=== PATIENT | male | born 1960 | race Caucasian/White ===

== ENCOUNTER 2018-12-10 14:31 | Observation (INO) ==
--- NOTE | 2018-12-10 18:36 | Internal Med History&Physical ---
Date of Encounter: 12/10/18 Time of Encounter: 11:00 Internal Medicine - H&P: HPI Chief complaint: Chest pain Plans for Post Hospital Care: Home History of present illness: Patient is a 58-year-old male past medical history significant for diabetes, hy pertension and hyperlipidemia who presented to [facility] [place] due to chest pain. She reported of epigastric, nonradiating, sharp pain which is constant with no provoking or relieving factors. Patient reported associated symptoms of shortness of breath and nausea/vomiting. His concerns of decided to go to the ER for evaluation. At [facility] ER in [place], first set of troponins were negative. CTA of the chest/abdomen negative for dissection. Patient requested transferred to [facility] due to close proximity to family. Past Med Surg Social Fam HX - Past Medical History Medical history: diabetes, other Additional medical history: anxiety,depression,lumbar Psychiatric history: anxiety, depression - Past Surgical History Surgical History: appendectomy, vasectomy, other Additional surgical history: back surgery, pain stimulator - Social History Smoking Status: Former smoker Smokeless Tobacco Status: No Alcohol use: none Drug use: none - Family History Mother Living Status: Hx Family Cancer: Yes Internal Medicine - H&P: Meds Oxycodone HCl/Acetaminophen [Percocet 10-325 mg Tablet] 1 tab PO Q4H PRN #60 tab 11/21/15 [Rx] Allergy/AdvReac Type Severity Reaction Status Date / Time acetaminophen [From Vicodin] AdvReac Nausea Unverified 11/02/15 11:06 hydrocodone [From Vicodin] AdvReac Nausea Unverified 11/02/15 11:06 All Systems PM: A 10-system review of systems was performed and is negative for pertinent findings except as documented above in the HPI. - Constitutional Vitals: Temp Pulse Resp BP Pulse Ox 97.9 F 78 18 144/84 94 12/10/18 16:50 12/10/18 16:50 12/10/18 16:50 12/10/18 16:50 12/10/18 16:50 Exam: General appearance: Present: A&O X 3, no acute distress - Head Head exam: Present: normocephalic - Eye Eye exam: Present: normal appearance - ENT ENT exam: Present: mucous membranes moist - Respiratory Respiratory exam: Present: CTAB. Absent: accessory muscle use, rales, rhonchi, wheezes - Cardiovascular Cardiovascular exam: Present: RRR, +S1, +S2. Absent: diastolic murmur, gallop, rubs, systolic murmur - GI/Abdominal GI/Abdominal exam: Present: Epigastric pain with tenderness to palpation - Extremities Exam Extremities exam: Absent: pedal edema - Neurological Exam Neurological exam: Present: alert, oriented X3, no focal deficits. Absent: altered - Psychiatric Psychiatric exam: -normal mood Skin exam: -normal color - Assessment and plan (1) Epigastric pain Current Visit: Yes Status: Acute Assessment and plan: Patient reports of being awakened this morning with sharp epigastric pain associated symptoms of nausea and vomiting He was sent here from [facility] for ACS rule out First set of troponins negative Will continue serial troponins and monitor on telemetry Will order echocardiogram Also order nuclear medicine stress test for ACS rule out If ACS has been ruled out, recommendations for evaluation of epigastric pain with a GI consult for consideration for EGD (2) HTN (hypertension), benign Current Visit: Yes Status: Acute Assessment and plan: Continue home medications (3) Diabetes Current Visit: Yes Status: Acute Assessment and plan: Hold oral diabetic medications and cover with sliding-scale insulin Qualifiers: Diabetes mellitus type: type 2 Qualified Code(s): E11.9 - Type 2 diabetes mellitus without complications (4) DVT prophylaxis Current Visit: Yes Status: Acute Assessment and plan: Subcutaneous heparin - Time Spent With Patient Total time spent is greater than 50% in coordination of care (as documented) at patient's floor/unit and/or counseling patient:
[2018-12-10] MEDS ORDERED: Naloxone 0.4 MG/ML INJ IVP PRN (18:45)
[2018-12-10] MEDS ORDERED: Ondansetron 4 MG/2 ML VIAL IVP ONE (19:56)
--- NOTE | 2018-12-10 19:58 | Event Note ---
Date of Encounter: 12/10/18 Time of Encounter: 19:29 Notified by nurse of patient continuing to complain of epigastric/chest pain. Assessed patient at bedside. Complains of pain in burning in epigastric area, relieved with vomiting. Second troponin negative, echo and stress test planned to rule out any cardiac etiology. Will order zofran and tums now. Nurse to notify of any new changes.
[2018-12-10] MEDS: *HR* Heparin 5,000 UNIT/ML VIAL SQ SCH (20:18)
[2018-12-11] MEDS ORDERED: Ketorolac 15 MG/ML VIAL IVP ONE (01:14)
[2018-12-11 01:15] LABS: Basophils % 0.4 %; Eosinophils # 0.1 K/mcL (0.0-0.6); Eosinophils % 0.7 %; Hematocrit 45.3 % (37.5-50.1); Hemoglobin 15.5 g/dL (12.9-16.9); Immature Granulocytes % 0.3 % (0-4); Lymphocytes # 2.1 K/mcL (0.6-4.6); Lymphocytes % 19.8 %; Mean Corpuscular HGB Conc 34.2 g/dL (31.6-35.5); Mean Corpuscular Hemoglobin 30.3 pg (28.0-33.3); Mean Corpuscular Volume 88.5 fL (83.0-100.0); Monocytes # 1.1 K/mcL (0.0-1.3); Monocytes % 10.5 %; Neutrophils # 7.4 K/mcL (1.6-8.9); Platelet Count 149 K/mcL (140-400); Red Blood Count 5.12 M/mcL (4.19-5.50); Red Cell Distribution Width 13.3 % (11.5-14.5); Segmented Neutrophils % 68.3 %
[2018-12-11 01:40] LABS: Alanine Aminotransferase 42 Units/L (7-52); Albumin 3.9 g/dL (3.5-5.7); Albumin/Globulin Ratio 1.1 (1.1-2.2); Alkaline Phosphatase 75 Units/L (34-104); Aspartate Amino Transferase 27 Units/L (13-39); BUN/Creatinine Ratio 20 (6-26); Bilirubin,Total 0.8 mg/dL (0.3-1.0); Blood Urea Nitrogen 14 mg/dL (6-20); Calcium 9.5 mg/dL (8.6-10.3); Carbon Dioxide 27 mEq/L (23-29); Chloride 96 mEq/L (98-107); Globulin 3.4 g/dL (2.4-3.5); Glucose 318 mg/dL (70-105); Osmolality,Calculated 291 (280-300); Potassium 4.1 mEq/L (3.5-5.1); Sodium 134 mEq/L (136-145); Total Protein 7.3 g/dL (6.4-8.9); eGFR For Non-African Americans > 60 (> 60)
[2018-12-11] MEDS: *HR* Heparin 5,000 UNIT/ML VIAL SQ SCH ×3 (05:58→22:53)
[2018-12-11] MEDS ORDERED: Regadenoson 0.4 MG/5 ML SYRINGE IVP ONE (06:01)
[2018-12-11] MEDS ORDERED: Ondansetron 4 MG/2 ML VIAL IVP ONE (06:12)
--- NOTE | 2018-12-11 11:52 | Internal Med Progress Note ---
Addendum entered and electronically signed by Whitney Rowell 12/12/18 09:57: Original Note: <Whitney Rowell - Last Filed: 12/11/18 12:03> Hospitalist Progress Note - Encounter Date of Encounter: 12/11/18 Time of Encounter: 07:45 - Subjective Interval History: 58-year-old male past medical history significant for diabetes, hypertension and hyperlipidemia who presented to [facility] [place] due to chest pain.He reported of epigastric & lower retro sternal nonradiating, sharp pain which is constant with no provoking or relieving factors. Patient reported associated symptoms of shortness of breath and nausea/vomiting. At [facility] ER in [place], first set of troponins were negative. CTA of the chest/abdomen negative for dissection. Patient requested transferred to [facility] due to close proximity to family. Today during my visit, the patient was well oriented to time place and person, the chest pain/epigastric pain was very minimal. Vitals are stable. He does not have any new complaints. He he was about to go for stress test while I visited him. - Exam Vitals: Temp Pulse Resp BP Pulse Ox 98.5 F 79 16 142/89 93 12/11/18 07:31 12/11/18 07:31 12/11/18 07:31 12/11/18 07:31 12/11/18 07:31 Exam: General appearance: Present: A&O X 3, no acute distress - Head Head exam: Present: normocephalic - Eye Eye exam: Present: normal appearance - ENT ENT exam: Present: mucous membranes moist - Respiratory Respiratory exam: Present: CTAB. Absent: accessory muscle use, rales, rhonchi, wheezes - Cardiovascular Cardiovascular exam: Present: RRR, +S1, +S2. Absent: diastolic murmur, gallop, rubs, systolic murmur - GI/Abdominal GI/Abdominal exam: Present: Epigastric pain with tenderness to palpation - Extremities Exam Extremities exam: Absent: pedal edema - Neurological Exam Neurological exam: Present: alert, oriented X3, no focal deficits. Absent: altered - Psychiatric Psychiatric exam: -normal mood Skin exam: -normal color - Assessment and Plan (1) Epigastric pain Current Visit: Yes Status: Acute Assessment and Plan: The patient has severe epigastric pain, it might be related to acid reflux, but he does have multiple risk factors for ACS We will ruled out epigastric pain related to acute coronary syndrome Echocardiogram and stress test has been planned report awaited Serial troponin was negative EKG: No ST elevation (2) Chest pain Current Visit: Yes Status: Acute Assessment and Plan: The patient was admitted for severe epigastric and lower mid retrosternal pain with shortness of breath and nausea vomiting He has multiple risk factors: Hypertension, diabetes, hyperlipidemia, former smoker Serial troponin was negative EKG; no ST or T-wave changes Echocardiogram has been done and report awaited 2 days cardiac stress test has been planned He is on Lipitor,We will adjust medication after reports Heart score 4 (3) HTN (hypertension), benign Current Visit: Yes Status: Acute Assessment and Plan: He is a known patient of hypertension under medication He is on hydralazine 10 MG Blood pressure 142/89 (4) Diabetes Current Visit: Yes Status: Acute Assessment and Plan: He has elevated blood sugar A1c 6.0 done long ago His blood sugar 318 Have ordered A1c today We will reassess blood sugar and A1c, to assess antidiabetes medication (5) Morbid obesity Current Visit: Yes Status: Acute Assessment and Plan: The patient has BMI 44.9 We have counseled about low-calorie and exercise (6) DVT prophylaxis Current Visit: Yes Status: Acute Assessment and Plan: He is on heparin SQ - Time Spent with Patient Total time spent is greater than 50% in coordination of care (as documented) at patient's floor/unit and/or counseling patient: Internal Medicine: Result - Labs CBC & Chem 7: 12/11/18 00:53 12/11/18 00:53 Labs: Short CBC 12/11/18 Range/Units 00:53 WBC 10.8 (4.3-11.1) K/mcL Hgb 15.5 (12.9-16.9) g/dL Hct 45.3 (37.5-50.1) % Plt Count 149 (140-400) K/mcL Neutrophils # 7.4 (1.6-8.9) K/mcL BMP 12/11/18 00:53 Sodium 134 L Potassium 4.1 Chloride 96 L Carbon Dioxide 27 BUN 14 Creatinine 0.70 Glucose 318 H Calcium 9.5 Cardiac Enzymes 12/10/18 12/11/18 12/11/18 Range/Units 19:03 00:53 06:30 Troponin I < 0.03 < 0.03 < 0.03 (< 0.04) ng/mL Liver Function 12/11/18 Range/Units 00:53 Total Bilirubin 0.8 (0.3-1.0) mg/dL AST 27 (13-39) Units/L ALT 42 (7-52) Units/L Alkaline Phosphatase 75 (34-104) Units/L Albumin 3.9 (3.5-5.7) g/dL Consult Discharge Plan - Plan Referrals: Kartik Fritz MD [Primary Care Provider] - <Bharat Boyd - Last Filed: 12/12/18 09:35> Hospitalist Progress Note - Encounter Date of Encounter: 12/11/18 - Exam Vitals: Temp Pulse Resp BP Pulse Ox 97.9 F 82 18 178/110 96 12/11/18 11:30 12/11/18 11:30 12/11/18 11:30 12/11/18 11:30 12/11/18 11:30 - Assessment and Plan (1) Epigastric pain Current Visit: Yes Status: Acute (2) HTN (hypertension), benign Current Visit: Yes Status: Acute (3) Diabetes Current Visit: Yes Status: Acute (4) DVT prophylaxis Current Visit: Yes Status: Acute - Time Spent with Patient Total time spent is greater than 50% in coordination of care (as documented) at patient's floor/unit and/or counseling patient: Internal Medicine: Result - Labs CBC & Chem 7: 12/11/18 00:53 12/12/18 04:48 Labs: Short CBC 12/11/18 Range/Units 00:53 WBC 10.8 (4.3-11.1) K/mcL Hgb 15.5 (12.9-16.9) g/dL Hct 45.3 (37.5-50.1) % Plt Count 149 (140-400) K/mcL Neutrophils # 7.4 (1.6-8.9) K/mcL BMP 12/11/18 00:53 Sodium 134 L Potassium 4.1 Chloride 96 L Carbon Dioxide 27 BUN 14 Creatinine 0.70 Glucose 318 H Calcium 9.5 Cardiac Enzymes 12/10/18 12/11/18 12/11/18 Range/Units 19:03 00:53 06:30 Troponin I < 0.03 < 0.03 < 0.03 (< 0.04) ng/mL Liver Function 12/11/18 Range/Units 00:53 Total Bilirubin 0.8 (0.3-1.0) mg/dL AST 27 (13-39) Units/L ALT 42 (7-52) Units/L Alkaline Phosphatase 75 (34-104) Units/L Albumin 3.9 (3.5-5.7) g/dL - Impressions Impressions Echocardiogram 12/11/18 18:47 Impressions: LVEF 60%. Mild left ventricular diastolic dysfunction. Normal right ventricular structure and function. No significant valvular dysfunction. No pulmonary hypertension. Left Ventricular Wall Motion: Rest Echo Findings All wall segments showed normal motion. Findings: Study Quality * Technically adequate exam. ECG Findings * Normal sinus rhythm. Left Ventricle * LVEF 60%. * Normal LV chamber size, wall thickness and function. * Mild left ventricular diastolic dysfunction. Right Ventricle * Normal right ventricular structure and function. Left Atrium * Normal left atrial size. Right Atrium * Normal right atrial size. Aortic Valve * No aortic regurgitation. * Trileaflet aortic valve. * No aortic stenosis. Mitral Valve * No mitral regurgitation. * Normal mitral valve structure. * No mitral stenosis. Tricuspid Valve * Tricuspid valve not well visualized. * Trace tricuspid regurgitation. Pulmonic Valve * Pulmonic valve is not well visualized. * No pulmonic stenosis. * No pulmonic regurgitation. Pulmonary Artery * Pulmonary artery not well visualized. Aorta * Normally sized aortic root. Pericardium * There is no pericardial effusion present. Interatrial Septum * Interatrial septum not well evaluated. IVC * The IVC is not well evaluated. - Attending Attestation I examined this patient and my medical decision-making was reviewed with the Resident Physician Dr. Rowell. I agree with the documented findings, disposition and treatment plan as described except to the extent set forth below. Mr. Sarvaia is a 58 y/o M with a known past medical history of diabetes type II, hypertension and hyperlipidemia who was admitted here for sub sternal CP, as well as epigastric pain. He was admitted in the hospital and placed him on quality assurance monitor final. His serial troponin came back is negative. Patient still complaining of some epigastric this discomfort associated with some nausea. Since patient is high risk for ACS he did go for stress test which he needed 2 days. So for now will continue aspirin and Nitro as needed. I also placed him on PPI b.i.d. and tums. Gen: A, A, O x 3 Chest: Diminnished BS b/l, no wheezing Heart: S1S2+ RRR No murmurs <Whitney Rowell - Last Filed: 12/11/18 12:03> (4) Diabetes Qualifiers: Diabetes mellitus type: type 2 Qualified Code(s): E11.9 - Type 2 diabetes mellitus without complications <Bharat Boyd - Last Filed: 12/12/18 09:35> (3) Diabetes Qualifiers: Diabetes mellitus type: type 2 Qualified Code(s): E11.9 - Type 2 diabetes mellitus without complications
[2018-12-11] MEDS ORDERED: Dextrose Gel 15 GM/37.5 ML TUBE PO PRN ×2 (12:42)
[2018-12-11] MEDS ORDERED: *HR* Dextrose 50 % in Water (Syg) 50 ML SYRINGE IVP PRN (12:42)
[2018-12-11] MEDS ORDERED: D5% in Water 1,000 ML IVC PRN (12:42)
[2018-12-11] MEDS ORDERED: Ondansetron 4 MG/2 ML VIAL IVP PRN (15:03)
[2018-12-11] MEDS ORDERED: Ondansetron 4 MG/2 ML VIAL ONE (15:36)
[2018-12-11] MEDS: Insulin LISPRO 300 UNITS/3 ML VIAL SQ SCH (16:25)
[2018-12-11] MEDS: Ibuprofen 600 MG TABLET PO PRN (16:25)
[2018-12-11] MEDS ORDERED: Insulin LISPRO 300 UNITS/3 ML VIAL SQ SCH (21:00)
[2018-12-12 05:33] LABS: BUN/Creatinine Ratio 20 (6-26); Blood Urea Nitrogen 14 mg/dL (6-20); Calcium 8.8 mg/dL (8.6-10.3); Carbon Dioxide 29 mEq/L (23-29); Chloride 99 mEq/L (98-107); Chol/HDL Ratio 6.3 (0-4.9); Cholesterol 188 mg/dL (< 200); Glucose 250 mg/dL (70-105); HDL Cholesterol 30 mg/dL (40-59); LDL Cholesterol,Calculated 120 mg/dL (0-99); Osmolality,Calculated 287 (280-300); Potassium 3.6 mEq/L (3.5-5.1); Sodium 134 mEq/L (136-145); Triglycerides 192 mg/dL (< 150); eGFR For Non-African Americans > 60 (> 60)
[2018-12-12] MEDS: *HR* Heparin 5,000 UNIT/ML VIAL SQ SCH (05:39)
[2018-12-12] MEDS: Ibuprofen 600 MG TABLET PO PRN (08:14)
[2018-12-12] MEDS: Insulin LISPRO 300 UNITS/3 ML VIAL SQ SCH (09:55)
[2018-12-12 09:59] LABS: Estimated Average Glucose 344 mg/dl; Hemoglobin A1C 13.6 %
--- NOTE | 2018-12-12 11:06 | Discharge Summary ---
<Whitney Rowell P - Last Filed: 12/12/18 11:30> - NOTES TO OUTPATIENT PROVIDER Notes to Outpatient Provider: The patient will follow-up with primary care provider within a week. The patient will follow-up with insulation blower within 3-4 weeks Orders not resulted at time of discharge: Pending orders 12/10/18 18:48 NM rubina perf SPECT multi [NM] Routine Date of Encounter: 12/12/18 Time of Encounter: 09:45 - Discharge Diagnosis (1) Epigastric pain Priority: Primary Status: Acute (2) Chest pain Priority: Primary Status: Acute Comments: Resolved Qualifiers: Ischemic chest pain type: unspecified angina pectoris type Qualified Code(s): I25.9 - Chronic ischemic heart disease, unspecified (3) HTN (hypertension), benign Priority: Secondary Status: Chronic (4) Diabetes Priority: Secondary Status: Chronic Qualifiers: Diabetes mellitus type: type 2 Diabetes mellitus fdc insulin use: without hoop cutter use Qualified Code(s): E11.9 - Type 2 diabetes mellitus without complications (5) Morbid obesity Priority: Secondary Status: Chronic (6) DVT prophylaxis Priority: Secondary Status: Chronic Hospital course: Mr. Saravia is a 58 year old male with past medical history of diabetes, hypertension and hyperlipidemia who presented to [facility] [place] due to chest pain.He reported of epigastric & lower retro sternal nonradiating, sharp pain 7-8/10 which is constant with no provoking or relieving factors. Patient reported associated symptoms of shortness of breath and nausea/vomiting. At [facility] ED in [place], first set of troponins were negative. CTA of the chest/abdomen were negative for dissection. Patient requested transferred to [place] due to close proximity to his family. The patient was admitted in [place] inpatient for close monitoring of cardiac status and chest pain workup. Echo : LVEF 60%. Mild left ventricular diastolic dysfunction. Nuclear stress test showed: Gated ejection fraction 53%, perfusion images sitting was negative for ischemia or infarct.EKG: Normal sinus rhythm. The patient is improving, he does not have any chest pain, hemodynamically stable. We are planning to discharge him and he will follow-up with primary care provider within a week and with the insulation blower within 34 weeks. We have added aspirin, Prilosec in his home medication. For high blood sugar level, she will take glipizide and metformin. He will follow-up with primary care provider for his diabetic drug/ dose adjustment. - Time Spent with Patient Total time spent providing and/or coordinating discharge services: - Discharge Medications Prescriptions: RX: Aspirin [Adult Aspirin] 81 mg PO ONCE #30 tablet. glipiZIDE [Glipizide] 5 mg PO BID #60 tablet RX: Omeprazole [PriLOSEC] 20 mg PO BIDAC #60 capsule. Home Medications: RX: Meloxicam 15 mg PO DAILY 12/10/18 [History] RX: Metformin HCl 500 mg PO BID 12/10/18 [History] RX: Rosuvastatin Calcium 10 mg PO HS 12/10/18 [History] RX: Aspirin [Adult Aspirin] 81 mg PO ONCE #30 tablet. 12/12/18 [Rx] RX: Omeprazole [PriLOSEC] 20 mg PO BIDAC #60 capsule. 12/12/18 [Rx] glipiZIDE [Glipizide] 5 mg PO BID #60 tablet 12/12/18 [Rx] Allergies/Adverse Reactions: Allergy/AdvReac Type Severity Reaction Status Date / Time acetaminophen [From Vicodin] AdvReac Nausea Verified 12/11/18 06:01 hydrocodone [From Vicodin] AdvReac Nausea Verified 12/11/18 06:01 Date of admission: 12/10/18 16:35 Primary care physician: Kartik Fritz MD - Constitutional Vitals: Temp Pulse Resp BP Pulse Ox 98.2 F 74 16 124/79 91 12/12/18 07:28 12/12/18 07:28 12/12/18 07:28 12/12/18 07:28 12/12/18 07:28 General appearance: Present: A&O X 3, no acute distress, answers questions appropriately Exam: General appearance: Present: A&O X 3, no acute distress - Head Head exam: Present: normocephalic - Eye Eye exam: Present: normal appearance - ENT ENT exam: Present: mucous membranes moist - Respiratory Respiratory exam: Present: CTAB. Absent: accessory muscle use, rales, rhonchi, wheezes - Cardiovascular Cardiovascular exam: Present: RRR, +S1, +S2. Absent: diastolic murmur, gallop, rubs, systolic murmur - GI/Abdominal GI/Abdominal exam: Present: Epigastric pain with tenderness to palpation - Extremities Exam Extremities exam: Absent: pedal edema - Neurological Exam Neurological exam: Present: alert, oriented X3, no focal deficits. Absent: altered - Psychiatric Psychiatric exam: -normal mood Skin exam: -normal color - Patient Status Disposition: Home, Self-Care Condition: Fair Functional capacity at discharge: independent ambulation Overall status at discharge: patient is progressing back to baseline - Discharge Instructions Instructions: Glipizide (By mouth), Aspirin (By mouth), Omeprazole (By mouth), Chest Pain (DC), Basic Carbohydrate Counting (DC), Meal Planning with Diabetes Exchanges (DC), Epigastric Pain (GEN) Follow Up With: Kartik Fritz MD [Primary Care Provider] - 12/24/18 10:30 am - Diet and Activity Activity: resume usual activities as tolerated Diet: diabetic diet, low fat, low cholesterol <ThalBharat duque - Last Filed: 12/12/18 14:04> Orders not resulted at time of discharge: Pending orders 12/10/18 18:48 NM rubnia perf SPECT multi [NM] Routine Date of Encounter: 12/12/18 - Discharge Diagnosis (1) Epigastric pain Status: Acute (2) HTN (hypertension), benign Status: Chronic (3) Diabetes Status: Chronic Qualifiers: Diabetes mellitus type: type 2 Diabetes mellitus fdc insulin use: without fdc use Qualified Code(s): E11.9 - Type 2 diabetes mellitus without complications (4) DVT prophylaxis Status: Chronic Hospital course: Mr. Saravia is a 58 year old male - Time Spent with Patient Total time spent providing and/or coordinating discharge services: Date of admission: 12/10/18 16:35 Primary care physician: Kartik Fritz MD - Constitutional Vitals: Temp Pulse Resp BP Pulse Ox 97.9 F 78 16 117/81 94 12/12/18 11:09 12/12/18 11:09 12/12/18 11:09 12/12/18 11:09 12/12/18 11:09 - Attending Attestation I examined this patient and my medical decision-making was reviewed with the Resident Physician Dr. Rowell. I agree with the documented findings, disposition and treatment plan as described except to the extent set forth below. Mr. Saravia is a 58 y/o M with a known past medical history of diabetes type II, hypertension and hyperlipidemia who was admitted here for sub sternal CP, as well as epigastric pain. He was admitted in the hospital and placed him on cardiac specialist. His serial troponin came back is negative. Patient still complaining of some epigastric this discomfort associated with some nausea. Since patient is high risk for ACS he did go for 2 days nuclear stress test. His nuclear stress test came back is negative for any ischemia. He does have small sized mild intensity, fixed, inferior perfusion defect noticed which seems to more like artifact. He denied any more active chest pain . Still have some epigastric discomfort , so placed him on PPI b.i.d. and tums. Medically stable to discharge home today. Gen: A, A, O x 3 Chest: Diminnished BS b/l, no wheezing Heart: S1S2+ RRR No murmurs
[2018-12-12 11:16] VITALS: BP 117/81
== END 2018-12-12 13:04 | disposition home or self-care (01) ==
LOC: 3BNU → SUATTDRO 16:35
PROVIDERS: ADMIT Internal Medicine; ATTEND Family Medicine